=== PATIENT | female | born 1980 | race Caucasian/White ===

== ENCOUNTER 2017-09-12 09:10 | Emergency (ER) | payer OTHER ==
[~2017-09-12] VITALS: Ht 170.2 cm; Wt 83.9 kg
--- NOTE | 2017-09-12 10:55 | ED GENERAL ADULT ---
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 LAST DRINK 10PM LAST NIGHT, DRINKS A PINT OF LIQUOR A NIGHT. Triage Nurses Notes Reviewed? yes Onset: Gradual Duration: minute(s): (20 MIN) Injury Environment: home Severity: moderate : No Patient currently breastfeeds: No HPI: Patient is a 37-year-old female with history of alcohol abuse presenting to the emergency Department chief complaint of dizziness that started this morning. Patient reports that she's been drinking heavily daily for the past one month. Drinks about 1 pint of alcohol daily. The last time she drank was yesterday around 10 PM. She is driving towards this morning and felt dizzy. Positive nausea, no vomiting. Denies history of withdrawal seizures. Denies wanting alcohol detox but decided to come in to help treat her withdrawal symptoms. Denies any suicidal or homicidal ideation. Denies chest pain palpitations or shortness of breath. Denies any urinary frequency or urgency or dysuria. Past History Travel History Traveled to [place] past 21 day No Medical History Any Pertinent Medical History? see below for history Neurological: NONE EENT: NONE Cardiovascular: NONE Respiratory: NONE Gastrointestinal: GERD Hepatic: NONE Renal: NONE Musculoskeletal: NONE Psychiatric: alcohol dependence, anxiety, depression, insomnia Endocrine: hypothyroidism Blood Disorders: NONE Cancer(s): NONE BIOLOGY SPECIALIST/Reproductive: NONE Surgical History Surgical History: non-contributory Psychosocial History What is your primary language Finnish Tobacco Use: Current Daily Use Daily Tobacco Use Amount/Type: => 5 Cigarettes daily ETOH Use: alcoholic Illicit Drug Use: denies illicit drug use Family History Hx Contributory? No Review of Systems Review of Systems Constitutional: Reports: no symptoms. Comments Review of systems: See HPI, All other systems negative. Constitutional, no chills fever or weight loss HEENT: No visual changes no sore throat no congestion Cardiovascular: No chest pain ,palpitation , orthopnea or ankle swelling Skin, no jaundice no rashes Respiratory: No dyspnea cough sputum or hemoptysis GI: no vomiting : No dysuria No hematuria Muscle skeletal: no back pain, no neck pain, Neurologic: No numbness no confusion Psych: No stress anxiety or depression,. Heme/endocrine: No bruising no bleeding no polyuria or polydipsia Immunology: No splenectomy or history of AIDS Physical Exam Physical Exam General Appearance: well developed/nourished, no apparent distress, alert, awake , comfortable Comments: Well-developed well-nourished person in no acute distress HEENT: Normal EENT exam, extraocular motion intact, no nystagmus. Pupils equally round and reactive to light and accommodation. Nose is atraumatic. External auditory canal and Tympanic membranes clear. Pharynx normal. No swelling or edema. Neck: Supple, no lymphadenopathy, normal range of motion without pain or tenderness Back: Nontender Cardiovascular: Regular rate and rhythms no murmurs rubs or gallops, normal JVP Respiratory: Chest nontender. No respiratory distress.breath sounds clear to auscultation bilaterally Abdomen: Soft, nontender nondistended, no appreciable organomegaly. Normal bowel sounds. No ascites and no rebound or guarding. Extremity: No edema, normal and equal pulses. Full range of motion of upper and lower extremities without difficulties or pain. 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 Neuro: Alert oriented x3, motor sensory normal, cranial nerves II through XII grossly intact. Cerebellar testing is unremarkable. Walks a steady gait. Skin: No appreciable rash on exposed skin, skin is warm and dry. Psych: Mood and affect is normal, memory and judgment is normal. Core Measures ACS in differential dx? No CVA/TIA Diagnosis: No Sepsis Present: No Sepsis Focused Exam Completed? No Progress Differential Diagnoses I considered the following diagnoses in my evaluation of the patient: Dehydration, electrolyte abnormality, cardiac arrhythmia, withdrawal symptoms Plan of Care: Orders Procedure Date/time Status EKG 09/12 1220 Active TOTAL TRIODOTHYROXINE 09/12 1128 Active URINE 09/12 1102 Complete URINALYSIS 09/12 110 Complete Add-on Test (ER Only) 09/12 105 Active URINE DRUG SCREEN FOR ER ONLY 09/12 105 Complete TSH REFLEX 09/12 105 Active FREE T4 09/13 1055 Active COMPREHENSIVE METABOLIC PANEL 09/12 105 Active CBC WITHOUT DIFFERENTIAL 09/13 1055 Complete Current Medications Sig/Dereck Start time Last Medication Dose Stop Time Status Admin Ketorolac 30 MG ONCE ONE 09/12 1100 CAN Tromethamine 09/12 1101 (Toradol) Ondansetron HCl 4 MG ONCE ONE 09/12 1100 CAN (Zofran) 09/12 1101 Sodium Chloride 1,000 ML BOLUS ONE 09/12 1100 CAN (Normal Saline 0.9%) 09/12 1159 Laboratory Tests 09/12/17 1148: Urine Opiates Screen < 100, Methadone Screen < 40, Barbiturate Screen < 60, Ur Phencyclidine Scrn < 6.00, Amphetamines Screen < 100, U Benzodiazepines Scrn < 85, Urine Cocaine Screen < 50, Urine Cannabis Screen < 5.00, Urinalysis LIGHT H , Urine Color YEL, Urine Clarity HAZY H, Urine pH 6.0, Ur Specific Pelican 1.010, Urine Protein NEG, Urine Ketones NEG, Urine Nitrite NEG, Urine Bilirubin NEG, Urine Urobilinogen 0.2, Ur Leukocyte Esterase NEG, Ur Microscopic SEDIMENT EXAMINED, Urine RBC 25-50 H, Urine WBC 1-3 H, Ur Epithelial Cells FEW, Urine Bacteria FEW H, Urine Hemoglobin LARGE H, Urine Glucose NEG, Urine Test NEGATIVE 09/12/17 1128: Anion Gap 12, Estimated GFR > 60, BUN/Creatinine Ratio 14.3, Glucose 95, Calcium 9.3, Total Bilirubin 0.8, AST 26, ALT 25, Alkaline Phosphatase 80, Total Protein 7.5, Albumin 4.3, Globulin 3.2, Albumin/Globulin Ratio 1.3, Free T4 1.32, Total T3 Pending, TSH &T3 &Free T4 Intrp 14.700 H, CBC w Diff NO MAN DIFF REQ, RBC 4.35, MCV 95.4, MCH 32.6 H, MCHC 34.2, RDW 13.9, MPV 7.4, Gran % 77.7 H, Lymphocytes % 15.0 L, Monocytes % 6.4, Eosinophils % 0.7, Basophils % 0.2, Absolute Granulocytes 7.4 H, Absolute Lymphocytes 1.4, Absolute Monocytes 0.6, Absolute Eosinophils 0.1, Absolute Basophils 0 09/12/2017 2:03:52 PM patient has been asymptomatic since ER arrival. Patient's vitals are stable. Patient resting comfortably tolerating by mouth. Patient discharged home, will follow-up with PCP. She is informed of her elevated TSH, she reports that she is working with her doctor on that. Given medications to help with withdrawal symptoms here patient does not want admission for alcohol detox. No suicidal or homicidal ideation. Patient clinically sober. Able to speak clearly, ambulates with steady gait. NO HX OFWITHDRAWAL SEIZURES Discussed with patient greater than 3 minutes alcohol cessation. Initial ED EKG: NSR Departure Departure Time of Disposition: 1401 Disposition: HOME OR SELF CARE Condition: Stable Clinical Impression Primary Impression: Dizziness Secondary Impressions: Alcohol abuse Referrals: Eddie Dudley DO (PCP/Family) Additional Instructions: Follow-up with your primary care physician regarding thyroid function testing. Increase fluids. Take Zofran as prescribed TO HELP with nausea. Take clonidine to help with any withdrawal symptoms. Departure Forms: Customer Survey General Discharge Information Prescriptions: Current Visit Scripts Ondansetron (Zofran Odt) 1 TAB SL TID PRN NAUSEA #10 TAB Clonidine HCl 1 TAB PO QPM PRN ANXIETY #10 TAB Critical Care Note Critical Care Note Critical Care Time: non-applicable
[2017-09-12] MEDS ORDERED: LEVOTHYROXINE175 MCG PO (11:02)
[2017-09-12 11:54] LABS: ABSOLUTE BASOPHIL COUNT 0 /CUMM (0.0-0.2); ABSOLUTE EOSINOPHIL COUNT 0.1 /CUMM (0.0-0.7); ABSOLUTE GRANULOCYTE CT 7.4 /CUMM (1.4-6.5); ABSOLUTE LYMPH COUNT 1.4 /CUMM (1.2-3.4); ABSOLUTE MONOCYTE COUNT 0.6 /CUMM (0.10-0.60); BASOPHIL % 0.2 % (0.0-2.0); EOSINOPHIL % 0.7 % (0-5); GRANULOCYTE % 77.7 % (42.2-75.2); HEMATOCRIT 41.5 % (37-47); MEAN CORPUSCULAR HGB 32.6 PG (27.0-31.0); MEAN CORPUSCULAR HGB CONC 34.2 G/DL (33.0-37.0); MEAN CORPUSCULAR VOLUME 95.4 FL (81.0-99.0); MEAN PLATELET VOLUME 7.4 FL (7.4-10.4); PLATELET COUNT 300 /CUMM (130-400); RBC DISTRIBUTION WIDTH 13.9 % (11.5-14.5); RED BLOOD CELL CT 4.35 /CUMM (4.20-5.40); WHITE BLOOD CELL COUNT 9.5 /CUMM (4.8-10.8)
[2017-09-12] MEDS ORDERED: CLONIDINE HCL0.1 MG PO (14:05)
[2017-09-12] MEDS ORDERED: ZOFRAN ODT4 M1 SL (14:05)
[2017-09-12 14:20] VITALS: BP 118/69
== END 2017-09-12 14:20 ==
LOC: ERH 09:10
PROVIDERS: Physician Assistant
DX: R42 Dizziness and giddiness (principal); F10.10 Alcohol abuse, uncomplicated
CPT/HCPCS: 80307; 81001; 81025; 93005; 93010; G0480; J3101